=== PATIENT | female | born 1975 | race Two or more races ===

== ENCOUNTER 2019-06-15 10:18 | Emergency (ER) | payer MEDICAID, OTHER ==
[2019-06-15 10:34] VITALS: BP 159/92
[2019-06-15] MEDS ORDERED: LIDOCAINE 1% HCL (LOCAL ANESTH.) INJ 20ML MDV IJ ONE (11:00)
[2019-06-15] MEDS ORDERED: InsuLIN REG 1unit/0.01ml Soln (100units/ml) SC ONE (11:00)
== END 2019-06-15 12:32 | disposition home or self-care (01) ==
LOC: ER 10:18
DX: N75.1 Abscess of Bartholin's gland (principal); E11.65 Type 2 diabetes mellitus with hyperglycemia; I10 Essential (primary) hypertension; Z90.49 Acquired absence of other specified parts of digestive tract; Z88.8 Allergy status to other drugs, medicaments and biological substances
CPT/HCPCS: 56420; 82962; 96372; 99283; J1815